=== PATIENT | female | born 1980 | race African-American/Black ===

== ENCOUNTER 2021-09-13 13:25 | Outpatient (CLI) | payer BC, SELFPAY ==
[2021-09-13 14:00] LABS: Hematocrit 31.9 % (37.0-47.0); Hemoglobin 9.9 g/dL (12.0-15.0)
[2021-09-13 14:02] LABS: Anion Gap 6 mmol/L (8-16); Blood Urea Nitrogen 10 mg/dL (7-17); Calcium 8.2 mg/dL (8.4-10.2); Carbon Dioxide 28 mmol/L (22-30); Chloride 104 mmol/L (98-107); Estimated Glomerular Filt Rate > 60; Glucose 84 mg/dL (65-110); Sodium 138 mmol/L (137-145)
== END 2021-09-13 13:26 | disposition home or self-care (01) ==
PROVIDERS: Anesthesiology; PCP Internal Medicine; Visit Provider Obstetrics & Gynecology Gynecology
DX: Z01.812 Encounter for preprocedural laboratory examination (principal); Z51.81 Encounter for therapeutic drug level monitoring; Z79.899 Other long term (current) drug therapy; D64.9 Anemia, unspecified
CPT/HCPCS: 36415; 80048; 85014; 85018

== ENCOUNTER 2021-09-17 00:41 | Day surgery (SDC) | payer BC, SELFPAY ==
[2021-09-10 11:15] VITALS: BMI 41.1
--- NOTE | 2021-09-10 11:26 | PC.NURSE ---
Report to the Outpatient Waiting Room, entrance under the green pavilion located off [facility], at time 6:15 on date 09/17/21. OR Time: 8:15. - You and your visitor will be asked a series of questions to screen for COVID 19 for your protection. - A mask is required within the hospital. One visitor will be allowed to accompany the patient into the hospital. Patients visitor will be instructed to remain with patient at all times or leave the building. We will allow the visitor to come back to the postoperative area when patient is ready. Preoperative COVID Testing Requirements: TO BRING COPY OF CARD No COVID Test needed if: (proof is required; if not received patient will have Rapid Test prior to entry) - Patient has received COVID Vaccine at least 14 days prior to procedure date or - Patient has positive COVID test result within last 90 days of surgery date. COVID Test needed if above criteria is not met Patients may have clear liquids (water, carbonated beverages, clear teas, apple juice) until 3 hours prior to surgery (5:15) with a maximum of 20 ounces. - No food from midnight until time of surgery Take the following medications with a SIP of water the morning of surgery: METOPROLOL, CONTROL PILL Medications to discontinue per physician: VITAMINS/SUPPLEMENTS Date to take last dose: 09/13/21 Please no make-up, nail latvian, hairspray, perfume, deodorant, or body powder the day of surgery. No jewelry (including any body piercings) or valuables the day of surgery, leave them at home. Please take a shower or bath the night before, or the morning of, surgery with an antibacterial soap. Wear comfortable, loose fitting clothing. - Jewelry must be removed prior to entering the operating room. Rings and piercings that are not removed may be cut off. - The hospital will not accept responsibility for valuables. - Please leave all valuables, including medications, at home the day of surgery. If you are going home after surgery, a licensed school bus driver must drive you home. - NO public transportation without another adult. - We recommend that an adult stay with you for 24 hours following discharge. - We also recommend that you do not drive, make important decision, drink alcoholic beverages, or take any drugs that were not prescribed by your health care provider for at least 24 hours after your discharge time. Follow any additional instructions given to you from your surgeon. Telephone instructions given to QUOC COKER and asked if any additional questions and then verbalized understanding. Patient advised to call surgeon office or pre surgery nurse liaison [phone] if any additional questions.
[2021-09-17] MEDS: LACTATED RINGERS 1,000 ML 30 ML IV CONT (06:40)
[2021-09-17 06:45] VITALS: BP 144/97; PULSE 71; RESP 18; TEMP 36.1; O2SAT 100
[2021-09-17] MEDS: ACETAMINOPHEN 500 MG TABLET 1000 MG PO (06:54)
--- NOTE | 2021-09-17 07:12 | PM.HPGS ---
History of Present Illness History of Present Illness Consent: Risks, benefits, and alternatives have been discussed and questions answered. Patient agrees to proceed with procedure. Chief complaint: Menorrhagia, Fibroids, 0.5cm left labia cyst(2) Narrative: Nathan Vuong is a 41 year old female with increasingly heavy and long cycles over the last 3 months. Pelvic ultrasound reveals multiple fibroids. It was recommended to proceed with D&C hysteroscopy to further evaluate. Risks of infection, bleeding, perforation, and fluid imbalance were reviewed. Patient voices understanding and agrees to proceed. Review of Systems Review of Systems: not repeated day of surgery; patient states no changes in status PMFSH Past Medical History Medical History (Updated 09/17/21 @ 07:18 by Carly Cantu MD) HTN (hypertension) Kidney stone (normal spontaneous vaginal delivery) Gestational diabetes Spontaneous X4 D&C x2 Surgical History Surgical History (Updated 09/17/21 @ 07:17 by Carly Cantu MD) H/O gastric sleeve Hx of tonsillectomy Social History Social History Smoking status: Former smoker Tobacco type: cigarettes Smoking end date: 06/23/01 Additional smoking assessment comments: NOT DAILY Alcohol intake: current Alcohol use details: 2/MONTH Substance use: never Substance use type: does not use Living arrangements: with family Spiritual care concerns: No Meds Home Medications and Allergies Home Medications Medication Instructions Recorded Confirmed Type esomeprazole magnesium 20 mg PO DAILY 09/10/21 09/17/21 History ferrous sulfate 325 mg PO DAILY 09/10/21 09/17/21 History levonorgestrel-ethinyl estrad 1 tablet PO DAILY 09/10/21 09/17/21 History [Larissia] metoprolol succinate 50 mg PO DAILY 09/10/21 09/17/21 History spironolactone 25 mg PO DAILY 09/10/21 09/17/21 History Allergies Allergy/AdvReac Type Severity Reaction Status Date / Time aspirin Allergy Severe MOUTH/TONGUE Unverified 09/17/21 06:57 SWELLING ibuprofen Allergy Intermediate MOUTH AND Unverified 09/17/21 06:57 TONGUE SWELLING Vital Signs Vital Signs - 24 hr 09/17/21 06:45 Temperature 97.0 F L Pulse Rate 71 Respiratory Rate 18 Blood Pressure 144/97 H Pulse Oximetry 100 Exam Const: General: healthy appearing and alert Orientation/consciousness: patient oriented x3 Resp: Effort & Inspection: normal respiratory effort Auscultation: clear to auscultation bilaterally Cardio: Rate: regular rate Rhythm: regular rhythm GI: GI Palp: Yes Soft to palpation, No Tenderness to palpation present (GI) and Yes Palpable mass present (Fundus to umbilicus) : External Female Exam: normal external appearance Speculum Exam - Vagina: normal appearance of the vagina and normal vaginal discharge Speculum Exam - Cervix: normal appearance of the cervix Bimanual exam- vagina & uterus: consistency normal and enlarged (18 weeks) Bimanual Exam- Adnexa, other: normal adnexae and No adnexal tenderness Neuro: General: patient oriented x3 Assessment and Plan Assessment and plan (1) Menorrhagia: Code(s): N92.0 - Excessive and frequent menstruation with regular cycle Status: Acute Assessment and Plan: Plan to proceed with D&C hysteroscopy to further evaluate (2) Fibroids: Code(s): D21.9 - Benign neoplasm of connective and other soft tissue, unspecified Status: Acute Assessment and Plan: Patient prefers not to have a hysterectomy therefore if there are submucosal fibroids, I will attempt MyoSure resection.
--- NOTE | 2021-09-17 07:19 | WPDHPUPDATE1 ---
History and Physical Update Update Date/Time: 09/17/21 07:19 History and Physical has been reviewed, including an updated exam of the patient. There are NO changes in the patient's condition. Risks, benefits, and alternatives have been discussed and questions answered. Patient agrees to proceed with procedure.
--- NOTE | 2021-09-17 07:39 | WPDANESEPPF ---
Anes - Initial Pre Proc Eval Procedure: Operation Date: 09/17/21 08:15 Proposed Procedures p Hysteroscopy Dilation and Curettage Possible Myosure, - Carly Cantu MD s Cyst Excision of Left Labia - Carly Cantu MD Date/Time: 09/17/21 07:39 Surgeon: Carly Cantu MD Pre Op Diagnosis: Menorrhagia, Fibroids, 0.5cm left labia cyst(2) Patient Data Age: 41 Gender: F Height: 1.63 m Weight: 110.4 kg Last Vital Signs Temp 36.1 C L 09/17/21 06:45 Pulse 71 09/17/21 06:45 Resp 18 09/17/21 06:45 BP 144/97 H 09/17/21 06:45 Pulse Ox 100 09/17/21 06:45 Allergies Allergy/AdvReac Type Severity Reaction Status Date / Time aspirin Allergy Severe MOUTH/TONGUE Unverified 09/17/21 06:57 SWELLING ibuprofen Allergy Intermediate MOUTH AND Unverified 09/17/21 06:57 TONGUE SWELLING Home Medications Medication Instructions Recorded Confirmed Type esomeprazole magnesium 20 mg PO DAILY 09/10/21 09/17/21 History ferrous sulfate 325 mg PO DAILY 09/10/21 09/17/21 History levonorgestrel-ethinyl estrad 1 tablet PO DAILY 09/10/21 09/17/21 History [Larissia] metoprolol succinate 50 mg PO DAILY 09/10/21 09/17/21 History spironolactone 25 mg PO DAILY 09/10/21 09/17/21 History Patient hx anesthesia problems: none Family hx anesthesia problems: none Results Review: All pre-operative results and documents have been reviewed as part of the pre-operative evaluation. [facility] Past Medical History Medical History (Updated 09/17/21 @ 07:18 by Carly Cantu MD) HTN (hypertension) Kidney stone (normal spontaneous vaginal delivery) Gestational diabetes Spontaneous X4 D&C x2 Surgical History Surgical History (Updated 09/17/21 @ 07:17 by Carly Cantu MD) H/O gastric sleeve Hx of tonsillectomy Social History Social History Smoking status: Former smoker Tobacco type: cigarettes Smoking end date: 06/23/01 Additional smoking assessment comments: NOT DAILY Alcohol intake: current Alcohol use details: 2/MONTH Substance use: never Substance use type: does not use Living arrangements: with family Spiritual care concerns: No Anes - Eval Final PreProcedure Day of Procedure 09/17/21 07:39 Patient weight: morbidly obese Heart: regular rate and rhythm Lungs: clear to auscultation and normal air movement Airway: Mallampati scale class II Neurological: alert and oriented Last oral intake: >/= 8 hours ASA classification: III Emergent: no Anesthetic plan: proceed Anesthesia type and monitoring: general LMA Results Review: All pre-operative results and documents have been reviewed as part of the pre-operative evaluation. Informed Consent: The patient's anesthetic plan and its attendant risks and benefits were discussed with the patient/family/POA. Questions were solicited and answers provided to the satisfaction of the patient/family/POA.
[2021-09-17] MEDS: LIDO 1%/EPINEPHRINE/PF 1:200,000 30 ML VIAL 10 ML XX (08:08)
--- NOTE | 2021-09-17 08:47 | W.PM.PROC2 ---
Procedure Note - Detailed Date of Procedure 09/17/21 Pre-op Diagnosis Menorrhagia, Fibroids, 0.5cm bilateral labia cyst(2) Post-op Diagnosis Same Procedure Performed D&C hysteroscopy; incision, drainage, and excision cyst wall of bilateral sebaceous labial cyst Surgeon Carly Cantu MD Anesthesia MAC and Local Findings The uterus is enlarged to the umbilicus. The cervix is midline however the canal is angled up and to the patient's left. The uterus sounds to 11cm. The endometrium appears grossly normal. The cyst are sebaceous an approximately0.5cm each (1 at the right upper labia majora and 1 at 3:00 on the labia majora on the left). Fluid input was 400cc fluid output was [id number]. No obvious perforation was noted throughout the case. Description of Procedure The patient was taken to operating room and placed under anesthesia in the dorsal lithotomy position. She was prepped and draped in the usual sterile fashion. [place] speculum was placed in the vagina and the cervix was grasped on the anterior lip with a tenaculum. The cervix is injected in each quadrant with 1% lidocaine. The uterus is sounded and stenosis is noted at 2cm. The small Hegar dilators able to enter and the canal was noted to be very anterior. The cervix is serially dilated to an 8 Hegar. The uterus is sounded to 11cm. The diagnostic hysteroscope was placed and the canal is noted to be up and pulled to the patient's left. No abnormalities are noted. Hysteroscope was removed and the medium sharp curette is used to sharply curette the endometrium until a good uterine cry is noted in all areas. The tenaculum was removed and silver nitrate and Monsel's solution are required for hemostasis of the tenaculum site. The speculum was removed. The sebaceous cysts are injected with 1% lidocaine with epinephrine. A 15 blade is used to open each cyst and the cyst material is drained. The base of the cyst is grasped with a pickup and excised. Tissue from the cysts was discarded. 3-0 Vicryl interrupted suture x1 in each cyst was used for hemostasis. Patient is awakened from anesthesia and taken to recovery in stable condition. Sponge, needle, and instrument counts are correct per the OR staff. Estimated Blood Loss 5 Drains No Packing No Pathology Yes (Endometrial curettings) Complications No immediate complications Condition Stable Disposition PACU
[2021-09-17 08:52] VITALS: BP 131/85; PULSE 75; RESP 16; O2SAT 94
[2021-09-17 09:20] VITALS: BP 157/104; PULSE 57; RESP 16; O2SAT 100
[2021-09-17] MEDS: oxyCODONE HCL (*CRX) 5 MG TAB IR PO (09:26)
--- NOTE | 2021-09-17 09:34 | SUR.PHASEII ---
DR. LEACH NOTIFIED RE: ELEVATED BP; OKAY'D TO GO HOME. PATIENT UNDERSTANDS TO RESUME HER SPIRONOLACTONE WHEN SHE GETS HOME.
[2021-09-17 09:47] VITALS: BP 149/103; PULSE 50; RESP 16
== END 2021-09-17 09:47 | disposition home or self-care (01) ==
PROVIDERS: PCP Internal Medicine; Visit Provider Obstetrics & Gynecology Gynecology
PROC: 0U5B8ZZ Destruction of Endometrium, Via Natural or Artificial Opening Endoscopic (ICD-10-PCS; CPT 58563; principal; 2021-09-17 08:15)
PROC: (CPT 11420; 2021-09-17 08:15)
DX: N92.0 Excessive and frequent menstruation with regular cycle (principal); N90.7 Vulvar cyst; D25.9 Leiomyoma of uterus, unspecified; I10 Essential (primary) hypertension; Z98.84 Bariatric surgery status; Z87.891 Personal history of nicotine dependence
CPT/HCPCS: 11420 ×2; 58558; 36415; 80048; 85014; 85018; 88305; A9270; J1100; J2250; J2405; J2704; J3010; J7030; J7120